=== PATIENT | female | born 1965 ===

== ENCOUNTER → 2025-03-17 | Outpatient (CLI) | payer OTHER ==
[~2025-03-17] MED LIST: AMLO1TAB24 PO; DEXA2TA PO; FAMO1TAB11 PO; LISI40TA10 PO; METO1TAB33 PO; SYNT25TA PO
== END ==
LOC: M ONCR 15:12
PROVIDERS: ATTEND General Practice
DX: C71.3 Malignant neoplasm of parietal lobe (principal); Z88.1 Allergy status to other antibiotic agents; Z88.2 Allergy status to sulfonamides; Z79.52 Long term (current) use of systemic steroids; Z79.899 Other long term (current) drug therapy